=== PATIENT | female | born 1960 | race Caucasian/White ===

== ENCOUNTER 2016-11-19 13:22 | Emergency (ER) | payer BC ==
[~2016-11-19] VITALS: Ht 152.4 cm; Wt 53.8 kg
--- OUTSIDE RECORDS SUMMARY | 2016-11-19 13:27 | XMS REPORT ---
Author Author Kera Noble eClinicalWorks Address Unknown Phone Unavailable Care Team Providers Care Clinical Courier Name Role Phone Kera Noble CP Unavailable Allergies No Known Allergies Problems Problem Type Condition Code Onset Dates Condition Status Problem Asthma (unspecified) 493.90 Active Problem Hyperlipidemia 272.4 Active Problem Hypertension 401.9 Active Problem Migraine, other, without mention of intractable migraine 346.80 Active Problem Restless leg syndrome 333.99 Active Problem CHRONIC PAIN SYNDROME 338.4 Active Medications Medication Code System Code Instructions Start Date End Date Status Dosage Valium NDC 3018 10 mg orally prn daily Mar 09, 2014/ Results No Known Results Summary Purpose eClinicalWorks Submission
--- OUTSIDE RECORDS SUMMARY | 2016-11-19 13:27 | XMS REPORT ---
Author Author Kera Noble eClinicalWorks Address Unknown Phone Unavailable Care Team Providers Care Motion Study Technician Name Role Phone Kera Noble Unavailable Allergies No Known Allergies Problems Problem Type Condition Code Onset Dates Condition Status Problem Asthma (unspecified) 493.90 Active Problem Hyperlipidemia 272.4 Active Problem Hypertension 401.9 Active Problem Migraine, other, without mention of intractable migraine 346.80 Active Problem Restless leg syndrome 333.99 Active Problem CHRONIC PAIN SYNDROME 338.4 Active Medications Medication Code System Code Instructions Start Date End Date Status Dosage Fioricet [facility] 1802 325 mg-50 mg-40 mg Mar 07, 2014 TAKE 2 TABLETS BY MOUTH EVERY 4 HOURS Results No Known Results Summary Purpose eClinicalWorks Submission
--- OUTSIDE RECORDS SUMMARY | 2016-11-19 13:27 | XMS REPORT ---
Author Author Kera Noble eClinicalWorks Address Unknown Phone Unavailable Care Team Providers Care Forestry Fire Aid Name Role Phone Kera Noble Unavailable Allergies [...] Start Date End Date Status Dosage Fioricet [facility] 1802 325 mg-50 mg-40 mg Mar 07, 2014 TAKE 2 TABLETS BY MOUTH EVERY 4 HOURS Results No Known Results Summary Purpose eClinicalWorks Submission
--- OUTSIDE RECORDS SUMMARY | 2016-11-19 13:27 | XMS REPORT ---
Author Author Kera Noble eClinicalWorks Address Unknown Phone Unavailable Care Team Providers Care Scratch Brusher Name Role Phone Kera Noble CP Unavailable Allergies No Known Allergies Problems Problem Type Condition ICD-9 Code Onset Dates Condition Status Problem Asthma (unspecified) 493.90 Active Problem Hyperlipidemia 272.4 Active Problem Hypertension 401.9 Active Problem Migraine, other, without mention of intractable migraine 346.80 Active Problem Restless leg syndrome 333.99 Active Problem CHRONIC PAIN SYNDROME 338.4 Active Medications Medication Code System Code Instructions Start Date End Date Status Dosage Fioricet [facility] 1802 325 mg-50 mg-40 mg Mar 07, 2014 TAKE 2 TABLETS BY MOUTH EVERY 4 HOURS Results No Known Results Summary Purpose eClinicalWorks Submission
--- OUTSIDE RECORDS SUMMARY | 2016-11-19 13:28 | XMS REPORT ---
Author Author Kera Noble eClinicalWorks Address Unknown Phone Unavailable Care Team Providers Care Launch Commander [place] [employer] Name Role Phone Kera Noble CP Unavailable [...] NDC 3018 10 mg orally prn daily Feb 03, 2016 1/2 Results No Known Results Summary Purpose eClinicalWorks Submission
--- OUTSIDE RECORDS SUMMARY | 2016-11-19 13:28 | XMS REPORT ---
Author Author Kera Noble eClinicalWorks Address Unknown Phone Unavailable Care Team Providers Care Analytical Clerk Name Role Phone Kera Noble CP Unavailable Allergies No Known Allergies Problems Problem Type Condition Code Onset Dates Condition Status Problem Asthma (unspecified) 493.90 Active Problem Hyperlipidemia 272.4 Active Problem Hypertension 401.9 Active Problem Migraine, other, without mention of intractable migraine 346.80 Active Problem Restless leg syndrome 333.99 Active Problem CHRONIC PAIN SYNDROME 338.4 Active Medications No Known Medications Results No Known Results Summary Purpose eClinicalWorks Submission
--- OUTSIDE RECORDS SUMMARY | 2016-11-19 13:28 | XMS REPORT ---
Author Author Kera Noble eClinicalWorks Address Unknown Phone Unavailable Care Team Providers Care Locomotive Crane Engineer Name Role Phone Kera Noble Unavailable Allergies [...] Start Date End Date Status Dosage Valium MULTUM 3018 10 mg orally prn daily Mar 09, 2014 Active 1/2 Results No Known Results Summary Purpose eClinicalWorks Submission
--- OUTSIDE RECORDS SUMMARY | 2016-11-19 13:28 | XMS REPORT ---
Author Author Kera Noble eClinicalWorks Address Unknown Phone Unavailable Care Team Providers Care Transplant Immunologist Name Role Phone Krea Noble Unavailable Allergies No Known Allergies Problems [...] 10 mg orally prn daily Mar 09, 201407/06 Results No Known Results Summary Purpose eClinicalWorks Submission
--- OUTSIDE RECORDS SUMMARY | 2016-11-19 13:28 | XMS REPORT ---
Author Author Kera Noble eClinicalWorks Address Unknown Phone Unavailable Care Team Providers Care Crate Repairer Name Role Phone Kera Noble CP Unavailable [...]
--- OUTSIDE RECORDS SUMMARY | 2016-11-19 13:28 | XMS REPORT ---
Author Kera Howard eClinicalWorks Address Unknown Phone Unavailable Care Team Providers Care Cardio Clinician Name Role Phone Kera Noble CP Unavailable Allergies, Adverse Reactions, Alerts Substance Reaction Event Type penicillin hives Drug Allergy Reglan restless legs Drug Allergy Problems Problem Type Condition Code Onset Dates Condition Status Assessment Change in multiple pigmented skin lesions D22.9 Active Problem Asthma (unspecified) 493.90 Active Problem Hyperlipidemia 272.4 Active Problem Hypertension 401.9 Active Problem Migraine, other, without mention of intractable migraine 346.80 Active Assessment Well adult exam Z00.00 Active Problem Restless leg syndrome 333.99 Active Problem CHRONIC PAIN SYNDROME 338.4 Active Medications Medication Code System Code Instructions Start Date End Date Status Dosage diazepam NDC 60861 2 mg orally prn daily Mar 31, 2016 1 tab(s) Excedrin Migraine NDC 89037 250 mg-250 mg-65 mg orally every 6 hours, prn 2 tab(s) Valium NDC 3018 10 mg orally prn daily Feb 03, 2016 1/2 Fioricet NDC 1802 325 mg-50 mg-40 mg Mar 07, 2014 TAKE 2 TABLETS BY MOUTH EVERY 4 HOURS multivitamin NDC 0 po daily 1 tab Procedures Procedure Coding System Code Date Lipid Panel CPT-4 27491 Mar 31, 2016 Automated Hemogram-CBC w/Diff CPT-4 16810 Mar 31, 2016 Comprehensive Metabolic Panel CPT-4 78796 Mar 31, 2016 Urinalysis, Auto, w/o Scope CPT-4 03360 Mar 31, 2016 Assay Thyroid Stim Hormone CPT-4 39775 Mar 31, 2016 Prev Visit, New - Age 40-64 CPT-4 98881 Mar 31, 2016 VENIPUNCT, ROUTINE* CPT-4 14467 Mar 31, 2016 Vital Signs Date/Time: Mar 31, 2016 Temperature 98 F Blood Pressure Diastolic 74 mm Hg Blood Pressure Systolic 136 mm Hg BMI 22.30 Index Height 60 in Weight 114.2 lbs Pulse 92 /min Results Name Result Date Reference Range Unit Abnormality Flag Lipid Panel ----HDL CHOLESTEROL 80 20160331 32-96 mg/dL ----LDL (CALCULATED) 115 20160331 0-99 CALC H ----HDL RISK FACTOR 2.6 50800616 0.0-4.0 CALC ----CHOLESTEROL 205 19865045 0-200 mg/dL H ----TRIGLYCERIDES 51 20160331 30-150 mg/dL CMP - Comp. Metabolic Panel (14) ----ALK. PHOSPHATASE 91 20160331 50-136 mg/dL ----GLUCOSE 86 [id number] 74-108 mg/dL ----CARBON DIOXIDE 27 20160331 21-32 mmol/L ----A/G RATIO 1.4 95078302 1.1-2.5 CALC ----CREATININE 0.74 81915961 0.60-1.30 mg/dL ----GLOBULIN 2.7 [id number] 1.5-4.5 g/dL ----BUN 15 20160331 7-18 mg/dL ----ALBUMIN 3.8 89362030 3.4-5.0 g/dL ----SODIUM 144 79633230 136-145 mmol/L ----TOTAL BILIRUBIN 0.50 89316081 0.10-1.00 mg/dL ----AST (SGOT) 14 20160331 15-37 U/L L ----CHLORIDE 108 [id number] 98-107 mmol/L H ----ALT (SGPT) 14 20160331 12-78 U/L ----POTASSIUM 4.0 93529067 3.5-5.1 mmol/L ----TOTAL PROTEIN 6.5 37668875 6.4-8.2 g/dL ----BUN/CREAT RATIO 20.3 74872400 12.0-20.0 CALC H ----CALCIUM 9.1 20175803 8.5-10.1 mg/dL Urinalysis Dip Only ----PROTEIN NEGATIVE [id number] NEGATIVE ----BLOOD 2+ 44845810 NEGATIVE A ----KETONE NEGATIVE 89489700 NEGATIVE ----BILIRUBIN NEGATIVE 70231700 NEGATIVE ----GLUCOSE NEGATIVE 33545763 NEGATIVE ----LEUKOCYTES TRACE 04865016 NEGATIVE A ----COLOR Yellow 20160331 ----NITRITE NEGATIVE 20160331 NEGATIVE ----APPEARANCE Clear 20160331 CLEAR ----SPECIFIC GRAVITY 1.020 20160331 1.003 - 1.030 ----UROBILINOGEN 0.2 E.U./dL 20160331 0.2 - 1.0 ----PH 5.5 20160331 4.5 - 8.0 CBC With Differential/Platelet ----MCHC 33.8 14732802 31.8-35.4 g/dL ----MCH 30.7 50097713 27.0-31.2 PG ----PLT 231 20160331 142-424 x10^3/UL ----RDW 13.8 [id number] 11.6-14.8 % ----HCT 37.3 20160331 37.7-47.9 % L ----MCV 91.0 20160331 80.0-97.0 fL ----RBC 4.10 [id number] 4.04-5.48 x10^6/UL ----HGB 12.6 84818195 12.2-16.2 g/dL ----WBC 4.9 [id number] 4.6-10.2 x10^3/UL > UA MICROSCOPIC ----BACTERIA NONE SEEN 20160331 ----SQ. EPITHELIAL CELLS 0-3 / LPF 20160331 A ----URBC 0-3 / HPF 20160331 A ----UWBC 0-3 / HPF 20160331 A TSH ----TSH 1.447 20160331 0.340-4.820 mIU/mL Summary Purpose eClinicalWorks Submission
--- OUTSIDE RECORDS SUMMARY | 2016-11-19 13:28 | XMS REPORT ---
Author Author Kera Noble eClinicalWorks Address Unknown Phone Unavailable Care Team Providers Care Software Licensing Specialist Name Role Phone Kera Noble CP Unavailable Allergies, Adverse Reactions, Alerts Substance Reaction Event Type penicillin hives Drug Allergy Reglan restless legs Drug Allergy Problems Problem Type Condition ICD-9 Code Onset Dates Condition Status Assessment Hypertension 401.9 Active Problem Asthma (unspecified) 493.90 Active Problem Hyperlipidemia 272.4 Active Problem Hypertension 401.9 Active Problem Migraine, other, without mention of intractable migraine 346.80 Active Assessment Restless leg syndrome 333.99 Active Problem Restless leg syndrome 333.99 Active Problem CHRONIC PAIN SYNDROME 338.4 Active Medications Medication Code System Code Instructions Start Date End Date Status Dosage Excedrin Migraine MULTUM 16581 250 mg-250 mg-65 mg orally every 6 hours, prn Active 2 tab(s) Valium MULTUM 3018 10 mg orally prn daily Apr 17, 2010 Active 1/2 Albuterol HFA pro air inhaler Unknown 0 8.5gm prn November 11, 2009 Active 2 puffs q 4 hours prn simvastatin MULTUM 92270 20 mg orally once a day (at bedtime) Jul 16, 2010 Active 1 tab(s) Cozaar MULTUM 148 25 mg orally once a day Active 1 tab(s) Fioricet MULTUM 1802 325 mg-50 mg-40 mg January 30, 2011 Active TAKE 2 TABLETS BY MOUTH EVERY 4 HOURS Claritin MULTUM 191 10 mg orally prn Active 1 tab(s) Valium MULTUM 3018 10 mg orally prn daily Apr 17, 2010 Active 1/2 Procedures Procedure Coding System Code Date Assay of Magnesium CPT-4 08014 January 09, 2014 Office/Outpatient Visit-Est CPT-4 86600 January 09, 2014 Basic Metabolic Panel CPT-4 12231 January 09, 2014 Vital Signs Date/Time: January 09, 2014 Temperature 98.7 F Blood Pressure Diastolic 90 mm Hg Blood Pressure Systolic 148 mm Hg Height 60 in Weight 126.3 lbs Results Magnesium, Serum Magnesium, Serum(-1.6-2.6 mg/dL) 2.0 BMP - Basic Metabolic Panel (8) CREATININE(-0.6-1.3 mg/dL) 0.6 BUN(-7-18 mg/dL) 15 CALCIUM(-8.5-10.1 mg/dL) 9.2 BUN/CREAT RATIO(-12.0-20.0 CALC) 25.0 CARBON DIOXIDE(-21-32 mmol/L) 23 GLUCOSE(-74-108 mg/dL) 92 POTASSIUM(-3.5-5.1 mmol/L) 3.9 CHLORIDE(-98-107 mmol/L) 106 SODIUM(-136-145 mmol/L) 144 Summary Purpose eClinicalWorks Submission
--- OUTSIDE RECORDS SUMMARY | 2016-11-19 13:28 | XMS REPORT ---
Author Author Kera Noble eClinicalWorks Address Unknown Phone Unavailable Care Team Providers Care Disc Jockey Name Role Phone Kera Noble Unavailable Allergies [...] Start Date End Date Status Dosage Fioricet [facility] 1802 325 mg-50 mg-40 mg Mar 07, 2014 TAKE 2 TABLETS BY MOUTH EVERY 4 HOURS Results No Known Results Summary Purpose eClinicalWorks Submission
--- OUTSIDE RECORDS SUMMARY | 2016-11-19 13:28 | XMS REPORT ---
Author Author Kera Noble eClinicalWorks Address Unknown Phone Unavailable Care Team Providers Care Outside Sales Associate Name Role Phone Kera Noble CP Unavailable Allergies No Known Allergies Problems Problem Type Condition Code Onset Dates Condition Status Problem Asthma (unspecified) 493.90 Active Problem Hyperlipidemia 272.4 Active Problem Hypertension 401.9 Active Problem Migraine, other, without mention of intractable migraine 346.80 Active Assessment Microscopic hematuria R31.2 Active Problem Restless leg syndrome 333.99 Active Problem CHRONIC PAIN SYNDROME 338.4 Active Medications No Known Medications Results No Known Results Summary Purpose eClinicalWorks Submission
--- OUTSIDE RECORDS SUMMARY | 2016-11-19 13:28 | XMS REPORT ---
Author Author Kera Noble eClinicalWorks Address Unknown Phone Unavailable Care Team Providers Care Offset Lithographic Press Setter Name Role Phone Kera Noble Unavailable Allergies [...] Start Date End Date Status Dosage Fioricet NDC 1802 325 mg-50 mg-40 mg Mar 07, 2014 TAKE 2 TABLETS BY MOUTH EVERY 4 HOURS Valium NDC 3018 10 mg orally prn daily Mar 09, 2014/2 Results No Known Results Summary Purpose eClinicalWorks Submission
--- OUTSIDE RECORDS SUMMARY | 2016-11-19 13:28 | XMS REPORT ---
Author Author Kera Noble eClinicalWorks Address Unknown Phone Unavailable Care Team Providers Care Clothes Marker Name Role Phone Kera Noble Unavailable Allergies [...] Instructions Start Date End Date Status Dosage Atorvastatin Calcium NDC 233952 10 mg orally once a day (at bedtime) Feb 1 tab(s) Results No Known Results Summary Purpose eClinicalWorks Submission
--- OUTSIDE RECORDS SUMMARY | 2016-11-19 13:28 | XMS REPORT ---
Author Author Kera Noble eClinicalWorks Address Unknown Phone Unavailable Care Team Providers Care Business Process Coordinator Name Role Phone Kera Noble Unavailable Allergies No Known Allergies Problems Problem Type Condition ICD-9 Code Onset Dates Condition Status Problem Asthma (unspecified) 493.90 Active Problem Hyperlipidemia 272.4 Active Problem Hypertension 401.9 Active Problem Migraine, other, without mention of intractable migraine 346.80 Active Assessment Sinusitis, acute 461.9 Active Problem Restless leg syndrome 333.99 Active Problem CHRONIC PAIN SYNDROME 338.4 Active Medications Medication Code System Code Instructions Start Date End Date Status Dosage Codeine Phosphate-Promethazine HCl NDC 504 10 mg-6.25 mg/5 mL orally every 4 hours Aug 10, 2014 5 mL Results No Known Results Summary Purpose eClinicalWorks Submission
--- OUTSIDE RECORDS SUMMARY | 2016-11-19 13:28 | XMS REPORT ---
Author Author Kera Noble eClinicalWorks Address Unknown Phone Unavailable Care Team Providers Care Medicaid Biller Name Role Phone Kera Noble CP Unavailable [...] Start Date End Date Status Dosage Fioricet EUGEN[facility] 1802 325 mg-50 mg-40 mg Mar 07, 2014 Active TAKE 2 TABLETS BY MOUTH EVERY 4 HOURS Results No Known Results Summary Purpose eClinicalWorks Submission
--- OUTSIDE RECORDS SUMMARY | 2016-11-19 13:28 | XMS REPORT ---
Author Author Kera Noble eClinicalWorks Address Unknown Phone Unavailable Care Team Providers Care Engineer Station Mainline Name Role Phone Kera Noble CP Unavailable [...]
--- OUTSIDE RECORDS SUMMARY | 2016-11-19 13:28 | XMS REPORT ---
Author Author Kera Noble eClinicalWorks Address Unknown Phone Unavailable Care Team Providers Care Armored Service Technician Name Role Phone Kera Noble Unavailable [...]
--- OUTSIDE RECORDS SUMMARY | 2016-11-19 13:29 | XMS REPORT ---
Author Author Kera Noble [facility] Address [address] [place] [address] Care Team Providers Care Clinical Informatics Specialist Name Role Phone Kera Noble Unavailable [phone] PROBLEMS Type Condition ICD9-CM Code [id number] Code Onset Dates Condition Status SNOMED Code Problem Hypertension 401.9 Active 25816604 Problem Asthma (unspecified) 493.90 Active 32979202 Problem CHRONIC PAIN SYNDROME 338.4 Active 704028128 Problem Migraine, other, without mention of intractable migraine 346.80 Active 702121221 Problem Hyperlipidemia 272.4 Active 36538631 Problem Restless leg syndrome 333.99 Active 37004957 ALLERGIES Unknown Allergies SOCIAL HISTORY No smoking Hx information available PLAN OF CARE VITAL SIGNS MEDICATIONS Unknown Medications RESULTS No Results PROCEDURES No Known procedures IMMUNIZATIONS No Known Immunizations
--- OUTSIDE RECORDS SUMMARY | 2016-11-19 13:29 | XMS REPORT ---
Author Author Kera Noble eClinicalWorks Address Unknown Phone Unavailable Care Team Providers Care Operating Room Technologist Name Role Phone Kera Noble CP Unavailable [...] Date End Date Status Dosage Fioricet [facility] 1802 325 mg-50 mg-40 mg Mar 07, 2014 Active TAKE 2 TABLETS BY MOUTH EVERY 4 HOURS Results No Known Results Summary Purpose eClinicalWorks Submission
--- OUTSIDE RECORDS SUMMARY | 2016-11-19 13:29 | XMS REPORT ---
Author Author Kera Noble eClinicalWorks Address Unknown Phone Unavailable Care Team Providers Care Fitness Manager Name Role Phone Kera Noble CP Unavailable [...]
--- OUTSIDE RECORDS SUMMARY | 2016-11-19 13:29 | XMS REPORT ---
Author Author Kera Noble eClinicalWorks Address Unknown Phone Unavailable Care Team Providers Care Capacitor Repairer Name Role Phone Kera Noble CP [...] NDC 3018 10 mg orally prn daily December 06, 2015/ Results No Known Results Summary Purpose eClinicalWorks Submission
--- OUTSIDE RECORDS SUMMARY | 2016-11-19 13:29 | XMS REPORT ---
Author Author Kera Noble eClinicalWorks Address Unknown Phone Unavailable Care Team Providers Care School Guidance Counselor Name Role Phone Kera Noble CP Unavailable Allergies, Adverse Reactions, Alerts Substance Reaction Event Type penicillin hives Drug Allergy Reglan restless legs Drug Allergy Problems Problem Type Condition ICD-9 Code Onset Dates Condition Status Assessment Localized superficial swelling of skin 782.2 Active Assessment Depression 311 Active Assessment Joint pain, hand 719.44 Active Assessment Pyuria 599.0 Active Problem Asthma (unspecified) 493.90 Active Problem Hyperlipidemia 272.4 Active Problem Hypertension 401.9 Active Problem Migraine, other, without mention of intractable migraine 346.80 Active Assessment Exam, General Adult Medical V70.0 Active Problem Restless leg syndrome 333.99 Active Problem CHRONIC PAIN SYNDROME 338.4 Active Medications Medication Code System Code Instructions Start Date End Date Status Dosage multivitamin NDC 0 po daily 1 tab meloxicam NDC 86159 7.5 mg orally once a day Feb 21, 2015 1 tab(s) Excedrin Migraine NDC 95025 250 mg-250 mg-65 mg orally every 6 hours, prn 2 tab(s) Valium NDC 3018 10 mg orally prn daily Mar 09, 2014 1/2 Fioricet NDC 1802 325 mg-50 mg-40 mg Mar 07, 2014 TAKE 2 TABLETS BY MOUTH EVERY 4 HOURS Effexor XR NDC 51872 37.5 mg orally once a day Feb 21, 2015 1 cap(s) Procedures Procedure Coding System Code Date Prev Visit, Est - Age 40-64 CPT-4 24682 Feb 21, 2015 Urine Culture/[place] Count CPT-4 65868 Feb 21, 2015 Automated Hemogram-CBC w/Diff CPT-4 61346 Feb 21, 2015 Lipid Panel CPT-4 50994 Feb 21, 2015 Comprehensive Metabolic Panel CPT-4 29801 Feb 21, 2015 Rheumatoid Factor, Quant CPT-4 39590 Feb 21, 2015 Antinuclear Antibodies CPT-4 54772 Feb 21, 2015 RBC SED RATE, AUTOMATED CPT-4 09002 Feb 21, 2015 Assay Thyroid Stim Hormone CPT-4 07451 Feb 21, 2015 Urinalysis, Auto, w/o Scope CPT-4 15343 Feb 21, 2015 Assay of Blood/Uric Acid CPT-4 18794 Feb 21, 2015 C-Reactive Protein CPT-4 85694 Feb 21, 2015 Vital Signs Date/Time: Feb 21, 2015 Temperature 98.2 F Blood Pressure Diastolic 86 mm Hg Blood Pressure Systolic 150 mm Hg BMI 23.00 Index Height 60 in Weight 117.8 lbs Pulse 80 /min Results Name Result Date Reference Range Unit Abnormality Flag CBC With Differential/Platelet Urinalysis Dip Only TSH ----TSH 1.69 [id number] 0.34-4.82 mIU/mL Summary Purpose eClinicalWorks Submission
[2016-11-19 13:40] VITALS: Ht 152.4 cm; Wt 53.8 kg
[2016-11-19] MEDS ORDERED: DIAZ2TAB PO (13:57)
[2016-11-19] MEDS ORDERED: DIAZ10TA PO (13:57)
[2016-11-19] MEDS ORDERED: ASPI1TAB72 PO (13:57)
[2016-11-19] MEDS ORDERED: BUTALBITAL/APAP/CAFFEINE TABLET PO ONE (14:45)
--- NOTE | 2016-11-19 15:09 | ERPDOC ---
Departure Disposition Decision Date: November 19, 2016 Disposition Decision Time: 15:10 Disposition: 01 DISCHARGED HOME, SELF-CARE Impression Impression Impression: Primary Impression: Migraine headache Severity: Moderate Condition: Improved Seen By: Physician only Patient Instructions: Migraine Headache (ED) Problems/Meds/Labs Reviewed?: Yes Medications reviewed and manag: Yes Additional Instructions: Please follow up as needed. I did write a prescription for Fioricet No. 15 tablets. You can keep these in storage and use them in place of coming to the ED for migraine. Follow up care ordered?: Yes Mental Status: Alert, Oriented Scripts Butalb/Acetaminophen/Caffeine (Fioricet 50-300-40 mg Capsule) 1 Each Capsule 1-2 TAB PO DAILY for HEADACHE, #15 TAB Prov: MANASA YOU MD 11/19/16 HPI - Headache General Chief Complaint: Headache Stated Complaint: HEADACHE Time Seen by Provider: 13:48 HPI - Headache Initial Comments 56-year-old female presents with migraine headache. She has been stressed last couple days, and thinks that may have caused it. She has had migraines previously, has been worked up with negative CT of the head. When she gets the migraine she finds that Fioricet works well for her. She does not want injection or any stronger meds. She states that usually people surprised in the past when she is just asked for Fioricet, but that that works the best for her. She's had some photophobia and nausea today. Allergies: Coded Allergies: hydrocodone (Verified Allergy, Mild, VOMITING, 11/19/16) metoclopramide (Verified Allergy, Mild, SHORTNESS OF BREATH, 11/19/16) ketorolac (Verified Allergy, Unknown, 11/19/16) Past History Patient Medical History Problem List Updates: Migraine Surgical History Denies Surgeries Family History Family PMH: FOUND: hypertension Social History Smoking Status: Current every day smoker Record Review Pertinent history updated: Yes Review of Systems GI Upper Abdomen: see HPI Neurological General: see HPI All other Systems All Other Systems: Reviewed and Negative Physical Exam General General Nourishment: well nourished, well developed, appears stated age, acute distress Distress Description Patient has lighting turned off, and is sitting with her eyes closed. Vitals and Pain First Documented Vital Signs Date Time Temp Pulse Resp B/P Pulse Ox O2 Delivery O2 Flow Rate FiO2 11/19/16 13:40 97.8 88 18 139/65 96 Room Air Weight: Kilograms: 53.800 Height (feet): 5 Height (inches): 0 Triage Pain Scale: Normal Exams: Head: Normocephalic w/o trauma Neck: Full range of motion, without adenopathy, JVD, bruits or thyromegaly Chest/Resp: Clear all [place], with good airflow, and symmetry bilaterally CV: Regular rate and rhythm, without murmur or gallop, Pulses 2+ all extremities, capillary refill, <2 seconds all ext., no pedal edema noted Abdomen: Bowel sounds positive, soft, non-tender, non-distended, no hepatosplenomegaly, masses or bruits noted Neurologic: Patient is alert, and oriented, cranial nerves, motor/sensory/ cerebellar, exams w/o gross deficits, to observation Psychiatric: Patient exhibits, appropriate attention, emotion and affect Differential Diagnoses Considering: Headache, Headache - Migraine, Headache - Tension/Muscle, Hypertensive Emergency, Sinusitis - Maxillary, Temporal Arteritis, Vasculitis Progress Results/Orders Orders Procedure Category Date Status Time Butalb/Apap/Caffeine PHA 11/19/16 Complete (Fioricet) 14:45 Medications Current ED Medications Acetaminophen/ Butalbital/ Caffeine (Fioricet) 2 tab O ONCE PO ; Start at 14:45; Stop 11/19/16 at 14:46; Status DC Progress Progress Patient requested Fioricet, she was given 2 tablets of Fioricet and had improvement in migraine. She is discharged to follow-up as needed. MANASA YOU MD November 19, 2016 15:09
[2016-11-19] MEDS ORDERED: BUTA1CAP53 PO (15:13)
[2016-11-19 15:25] VITALS: BP 139/65; PULSE 88; RESP 18; TEMP 97.8; O2SAT 96
== END 2016-11-19 15:25 | disposition home or self-care (01) ==
LOC: ED 13:22
DX: G43.909 Migraine, unspecified, not intractable, without status migrainosus (principal)